=== PATIENT | female | born 1995 | race Caucasian/White ===

== ENCOUNTER 2016-11-17 10:45 | Emergency (ER) | payer OTHER ==
[~2016-11-17] VITALS: Wt 76.5 kg
--- NOTE | 2016-11-17 11:44 | ERD ---
ER Documentation Chief Complaint Date/Time DATE: 11/17/16 TIME: 11:43 Chief Complaint VAG SPOTTING, ONSET TODAY, NO CRAMPING, PT 7 WKS PG, A0 HPI Patient is a 21-year-old female who is who is approximately 7 weeks who presents to the ED with light vaginal spotting that started this morning no pelvic pain. Denies abdominal pain, nausea, vomiting or diarrhea. Denies headache or dizziness. Unsure of last normal menstrual period. Denies chest pain or cough or shortness of breath. Denies leg pain or swelling. No other complaints. ROS All systems reviewed and are negative except as per history of present illness. Medications Home Meds Active Scripts Acetaminophen* (Tylophen*) 500 Mg Capsule, 1 CAP PO Q6H Y for PAIN AND OR ELEVATED TEMP, #20 CAP Prov:REYNA WILSON PA-C 11/17/16 Nitrofurantoin Monohyd Macrocr* (Macrobid*) 100 Mg Capsr, 100 MG PO BID for 7 Days, CAP Prov:REYNA WILSON PA-C 11/17/16 Allergies Allergies: Coded Allergies: No Known Allergy (Unverified , 05/13/14) PMhx/Soc Medical and Surgical Hx: pt denies Medical Hx History of Surgery: Yes () Anesthesia Reaction: No Hx Neurological Disorder: No Hx Respiratory Disorders: No Hx Cardiac Disorders: No Hx Psychiatric Problems: No Hx Miscellaneous Medical Probl: No Hx Alcohol Use: No Hx Substance Use: No Hx Tobacco Use: No Smoking Status: Never smoker Physical Exam Vitals Vital Signs Date Time Temp Pulse Resp B/P Pulse Ox O2 Delivery O2 Flow Rate FiO2 11/17/16 10:52 98.5 85 17 131/61 99 Physical Exam GENERAL: Well-developed, well-nourished female. Appears in no acute distress. HEAD: Normocephalic, atraumatic. EYES: Pupils are equally reactive bilaterally. EOMs grossly intact. No conjunctival erythema. ENT: Moist mucous membranes. No uvula deviation. No kissing tonsils. No exudates. NECK: Supple. No lymphadenopathy or thyromegaly. No meningismus. negative kernig. negative brudinski. LUNG: Clear to auscultation bilaterally. No rhonchi, wheezing, rales or coarse breath sounds. HEART: Regular rate and rhythm. No murmurs, rubs or gallops. ABDOMEN: No scars, ecchymosis or rashes noted. Soft, nontender, and nondistended. Positive bowel sounds in all four quadrants. No rebound tenderness , no guarding. (-) McBurneys point tenderness. No CVA tenderness. BACK: No midline tenderness. Extremities: Equal pulses bilaterally. No peripheral clubbing, cyanosis or edema. No unilateral leg swelling. NEUROLOGIC: Alert and oriented. Moving all four extremities. 5/5 strength in all extremities. Normal speech. Steady gait. SKIN: Normal color. Warm and dry. No rashes or lesions. Capillary refill < 2 seconds Result Diagram: 11/17/16 1145 Results 24 hrs Laboratory Tests Test 11/17/16 11:45 White Blood Count 5.710^3/ul Red Blood Count 4.6310^6/ul Hemoglobin 12.0g/dl Hematocrit 37.0% Mean Corpuscular Volume 79.9fl Mean Corpuscular Hemoglobin 25.9pg Mean Corpuscular Hemoglobin Concent 32.4g/dl Red Cell Distribution Width 13.9% Platelet Count 80225^3/UL Mean Platelet Volume 11.2fl Neutrophils % 68.6% Lymphocytes % 20.7% Monocytes % 7.8% Eosinophils % 2.3% Basophils % 0.3% Nucleated Red Blood Cells % 0.0/100WBC Neutrophils # 3.910^3/ul Lymphocytes # 1.210^3/ul Monocytes # 0.510^3/ul Eosinophils # 0.110^3/ul Basophils # 0.010^3/ul Nucleated Red Blood Cells # 0.010^3/ul Urine Color LT. YELLOW Urine Clarity CLOUDY Urine pH 6.5 Urine Specific [place] 1.020 Urine Ketones NEGATIVE Urine Nitrite POSITIVE Urine Bilirubin NEGATIVE Urine Urobilinogen 0.2 E.U./dL Urine Leukocyte Esterase 1+ Urine Microscopic RBC 2-5/HPF Urine Microscopic WBC 2-5/HPF Urine Epithelial Cells MANY Urine Bacteria MANY Urine Hemoglobin 2+ Urine Glucose NEGATIVE% Urine Total Protein NEGATIVE Beta HCG, Quantitative 18218.0mIU/ml Procedures/MDM ER COURSE: I kept the patient and/or family informed of laboratory and diagnostic imaging results throughout the emergency room course. EKG, MONITORS, & DIAGNOSTIC IMAGING: [place] [address] Rad[facility] Main Line: [phone] DIAGNOSTIC IMAGING REPORT Patient: DENA MUNOZ : 1995 Age: 21 Sex: F MR #: [id number] DOS: 11/17/16 1137 Ordering MD: REYNA WILSON PA-C Location: FT Room/Bed: PROCEDURE: OBSTETRICAL ULTRASOUND WITH ENDOVAGINAL IMAGES CLINICAL INDICATION: Vaginal Bleed () TECHNIQUE: Multiple sonographic images of the pelvis were obtained utilizing a transabdominal and endovaginal technique. The images were reviewed on a PACS workstation. COMPARISON: None. LMP: 09/19/2016 FINDINGS: There is a single live intrauterine with heart rate of 166 beats per minute, mean sac diameter of 2.58 cm, and crown-rump length of 0.94 cm which is consistent with a gestational age of 7 weeks, 2 days . The estimated date of delivery by ultrasound is 07/04/2017 . The estimated gestational age by LMP is 8 weeks, 3 days . The estimated date of delivery by LMP is 06/26/2017 . There is a crescentic hypoechoic lesion adjacent to the gestational sac measuring 2.5 x 1.2 cm consistent with a subchorionic hemorrhage. The right ovary measures 3.6 x 1.7 x 1.6 cm. The left ovary measures 3.8 x 1.8 x 2.1 cm. There is normal vascular flow in both ovaries. There is a 1.3 cm complex cystic lesion with low level internal echoes in the right ovary which may be a hemorrhagic/corpus luteal cyst. No significant pelvic free fluid is identified. IMPRESSION: Single live intrauterine consistent with a gestational age of 7 weeks , 2 days . The estimated date of delivery is 07/04/2017 . Dating by ultrasound is within 8 days of dating by LMP. Possible 2.5 cm subchorionic hemorrhage. 1.3 cm complex cystic lesion in the right ovary may be a hemorrhagic/corpus luteal cyst. RPTAT: EE Martin Slaughter, Physician Date Time Electronically viewed and signed by Martin Slaughter Physician on 11/17/2016 13:37 RA/ CC: RYENA WILSON PA-C LAB INTERPRETATION: CBC showed no evidence of systemic infection or severe anemia. UA showed 1+ leukocytes, positive nitrItes and no hematuria. RH is a positive bhc MEDICAL DECISION MAKING: This is a 21-year-old female who is who presents with mild vaginal spotting 1 day. Vital signs were reviewed. Patient is afebrile. Patient is not hypoxic. Patient is not toxic or ill-appearing. Ultrasound is by radiologist unremarkable. Low suspicion for ovarian torsion, PID, tuboovarian abscess, ectopic , bowel obstruction, pyelonephritis, appendicitis, cervicitis, septic , molar , HELLP syndrome, preeclampsia, eclampsia, placenta previa, placenta abruptia. Patient has a UTI. Low suspicion for pyelonephritis, septic stone or obstructive stone. DISCHARGE: At this time, patient is stable for discharge and outpatient management with no new complaints during the ER course. Patient was sent home with Tylenol, Macrobid copy of all imaging and laboratory studies and to follow-up with OB in 2 days or return here in 2 days for reevaluation. Patient will be discharged home with instructions to recheck for new or worsening symptoms such as fever, nausea, weakness, LOC and to follow up with primary care in the next 1-2 days. Patient was advised to return to the ER for any new or worsening symptoms. Plan was discussed and patient and/or family understands and agrees. Home instructions were given. Departure Diagnosis: Primary Impression: Vaginal bleeding in patient at less than 20 weeks gestation Additional Impression: UTI (urinary tract infection) Urinary tract infection type: site unspecified Hematuria presence: without hematuria Qualified Code: N39.0 - Urinary tract infection without hematuria, site unspecified Condition: Stable REYNA WILSON PA-C Nov 17, 2016 11:44
[2016-11-17 12:01] LABS: ADD SCAN DIFF NO
[2016-11-17 12:10] LABS: ADD UMIC YES; URINE BILIRUBIN (Dip) NEGATIVE (NEGATIVE); URINE BLOOD (Dip) 2+ (NEGATIVE); URINE COLOR LT. YELLOW (YELLOW); URINE GLUCOSE (Dip) NEGATIVE (NEGATIVE); URINE KETONES (Dip) NEGATIVE (NEGATIVE); URINE LEUKOCYTE ESTERASE (Dip) 1+ (NEGATIVE); URINE NITRITE (Dip) POSITIVE (NEGATIVE); URINE TOTAL PROTEIN (Dip) NEGATIVE (NEGATIVE); URINE UROBILINOGEN (Dip) 0.2 E.U./dL (0.1-1.0)
[2016-11-17 12:16] LABS: BASOPHILS % 0.3 % (0.0-2.0); EOSINOPHILS # 0.1 10^3/ul (0.0-0.5); EOSINOPHILS % 2.3 % (0.0-7.0); LYMPHOCYTES # 1.2 10^3/ul (0.8-2.9); LYMPHOCYTES % 20.7 % (15.0-51.0); MEAN CORPUSCULAR HEMOGLOBIN 25.9 pg (29.0-33.0); MEAN CORPUSCULAR HGB CONC 32.4 g/dl (32.0-37.0); MEAN CORPUSCULAR VOLUME 79.9 fl (82.0-101.0); MEAN PLATELET VOLUME 11.2 fl (7.4-10.4); MONOCYTE # 0.5 10^3/ul (0.3-0.9); MONOCYTES % 7.8 % (0.0-11.0); NEUTROPHIL # 3.9 10^3/ul (1.6-7.5); NEUTROPHILS % 68.6 % (39.0-77.0); PLATELET COUNT 241 10^3/UL (140-415); RED BLOOD COUNT 4.63 10^6/ul (4.20-5.40); RED CELL DISTRIBUTION WIDTH 13.9 % (11.5-14.5); WHITE BLOOD COUNT 5.7 10^3/ul (4.8-10.8)
[2016-11-17 12:26] LABS: BACTERIA,URINE MANY
--- NOTE | 2016-11-17 13:38 | RADRPT ---
PROCEDURE: OBSTETRICAL ULTRASOUND WITH ENDOVAGINAL IMAGES CLINICAL INDICATION: Vaginal Bleed () TECHNIQUE: Multiple sonographic images of the pelvis were obtained utilizing a transabdominal and endovaginal technique. The images were reviewed on a PACS workstation. COMPARISON: None. LMP: 09/19/2016 FINDINGS: There is a single live intrauterine with heart rate of 166 beats per minute, mean sa c diameter of 2.58 cm, and crown-rump length of 0.94 cm which is consistent with a gestational age o f 7 weeks, 2 days . The estimated date of delivery by ultrasound is 07/04/2017 . The estimated gestational age by LMP is 8 weeks, 3 days . The estimated date of delivery by LMP is 06/26/2017 . There is a crescentic hypoechoic lesion adjacent to the gestational sac measuring 2.5 x 1.2 cm consi stent with a subchorionic hemorrhage. The right ovary measures 3.6 x 1.7 x 1.6 cm. The left ovary measures 3.8 x 1.8 x 2.1 cm. There is no rmal vascular flow in both ovaries. There is a 1.3 cm complex cystic lesion with low level internal echoes in the right ovary which may be a hemorrhagic/corpus luteal cyst. No significant pelvic free fluid is identified. IMPRESSION: Single live intrauterine consistent with a gestational age of 7 weeks, 2 days . The estimated date of delivery is 07/04/2017 . Dating by ultrasound is within 8 days of dating by LMP. Possible 2.5 cm subchorionic hemorrhage. 1.3 cm complex cystic lesion in the right ovary may be a hemorrhagic/corpus luteal cyst. RPTAT: EE Physician Taylor Date Time Electronically viewed and signed by Physician Taylor on 11/17/2016 13:37 /
[2016-11-17] MEDS ORDERED: ACET500C5 PO (13:42)
[2016-11-17] MEDS ORDERED: NITR-58 PO (13:42)
[2016-11-17 14:12] VITALS: BP 126/66; PULSE 76; RESP 18; TEMP 97.8
== END 2016-11-17 14:12 | disposition home or self-care (01) ==
LOC: FTE 10:45
DX: O20.9 Hemorrhage in early pregnancy, unspecified (principal); O23.41 Unspecified infection of urinary tract in pregnancy, first trimester; Z3A.08 8 weeks gestation of pregnancy
CPT/HCPCS: 36415; 76801; 81001; 84702; 85025; 86900; 86901

== ENCOUNTER 2017-06-19 07:16 | Inpatient (IN) | END 2017-06-22 16:30 | disposition home or self-care (01) | DRG 766 ==